=== PATIENT | male | born 1980 | race Caucasian/White ===

== ENCOUNTER 2018-12-31 01:02 | Observation (INO) ==
[2018-12-31 01:38] LABS: Microscopic, Urine URINE MICROSCOPIC (MICROSCOPIC)
[2018-12-31 01:39] LABS: Basophils % 0.2 % (0.1-2.0); Eosinophils % 0.3 % (0.1-12.0); Hematocrit 41.3 % (42.0-52.0); Hemoglobin 14.3 g/dL (14.1-18.0); Lymphocytes # 2.6 K/mm3 (0.7-4.5); Lymphocytes % 20.7 % (10-50); Mean Corpuscular HGB Conc 34.6 g/dL (31.8-35.4); Mean Corpuscular Hemoglobin 30.3 pg (27.0-31.2); Mean Corpuscular Volume 87.6 fl (80-94); Mean Platelet Volume 6.7 fl (7.4-10.4); Monocytes # 0.7 K/mm3 (0.1-1.0); Monocytes % 5.1 % (1.7-9.3); Neutrophils # 9.4 K/mm3 (1.8-7.8); Neutrophils % 73.6 % (37.0-80.0); Platelet Count 292 K/mm3 (142-424); Red Blood Count 4.72 M/mm3 (4.60-6.20); White Blood Count 12.8 K/mm3 (4.8-10.8)
[2018-12-31 01:42] LABS: Appearance,Urine CLEAR (Clear); Blood, Urine Negative (Negative); Color,Urine DK YELLOW (Yellow); Glucose,Urine (UA) Negative (Negative); Ketones,Urine Negative (Negative); Leukocyte Esterase,Urine Negative (Negative); Protein,Urine TRACE (Negative); Specific Gravity, Urine >= 1.030 (1.005-1.030)
[2018-12-31 01:50] LABS: Bilirubin,Urine Negative (Negative)
[2018-12-31 01:51] LABS: Bacteria,Urine Trace /lpf; WBC,Urine Occasional #/hpf (0-3)
[2018-12-31 01:51] LABS: Albumin Level 3.4 gm/dL (3.4-5.0); Albumin/Globulin Ratio 0.7 (1.1-1.8); Anion Gap 14.6 mEq/L (5-15); Bilirubin,Total 0.9 mg/dL (0.2-1.0); Calcium 8.7 mg/dL (8.5-10.1); Globulin 4.8 gm/dl (1.3-3.2); Potassium 3.6 mmoL/L (3.5-5.1); Total Protein,Serum 8.2 gm/dL (6.4-8.2)
[2018-12-31 02:00] LABS: Amphetamine/Metha Screen,Urine Negative ng/mL (<1000); Barbiturates Screen,Urine Negative ng/mL (<200); Benzodiazepines Screen,Urine Negative ng/mL (<200); Cannabinoid Screen,Urine Positive ng/mL (<50); Cocaine Screen,Urine Negative ng/mL (<300); Methadone Screen,Urine Negative ng/mL (<300); Opiate Screen,Urine Positive ng/mL (<300); Phencyclidine Screen,Urine Negative ng/mL (<25)
--- NOTE | 2018-12-31 02:36 | Emergency Department Note ---
ED Disposition Clinical Impression: Abscess of arm, left, Hepatitis C virus, Hepatitis C virus infection resolved after antiviral drug therapy Disposition: Admitted as Observation Condition on Discharge: Good Instructions: DI for Skin Abscess Referrals: Cameron Stewart MD [Primary Care Provider] - Time of Disposition: 02:42 - Critical Care Critical Care Time: No Attestation: On 12/31/18, the high probability of a clinically significant, sudden or life threatening deterioration of the following system(s) required my full and direct attention, intervention and personal management. The time I documented below is in addition to time spent performing reported procedures but includes the following listed in this critical care notation. Medical Decision Making - Medical Records Medical records reviewed: Yes: I reviewed the patient's medical records. - Phil Inquiry Pt receiving controlled substance: No Phil was queried for this patient: No Vital Signs: 12/31/18 01:03 Temperature 98.8 F Temperature Source Oral Pulse Rate [Left Radial] 98 H Respiratory Rate 18 Blood Pressure [Right Arm] 146/83 H Blood Pressure Mean [Right Arm] 104 Blood Pressure Source [Right Arm] Automatic Cuff Blood Pressure Position [Right Arm] Sitting 02 Sat by Pulse Oximetry 97 Oxygen Delivery Method Room Air - Lab Data Lab results reviewed: Yes: I reviewed the patient's lab results. Lab Results 12/31/18 01:25: WBC 12.8 H, RBC 4.72, Hgb 14.3, Hct 41.3 L, MCV 87.6, MCH 30.3, MCHC 34.6, RDW 14.0, Plt Count 292, MPV 6.7 L, Neut % (Auto) 73.6, Lymph % (Aut o) 20.7, [place] % (Auto) 5.1, Eos % (Auto) 0.3, Baso % (Auto) 0.2, Neut # (Auto) 9.4 H, Lymph # (Auto) 2.6, [place] # (Auto) 0.7, Eos # (Auto) 0.0, Baso # (Auto) 0.0 12/31/18 01:25: Lactate 0.8 12/31/18 01:25: Sodium 139, Potassium 3.6, Chloride 104, Carbon Dioxide 24, Anion Gap 14.6, BUN 9, Creatinine 1.05, Estimated Creat Clear 150, Estimated GFR 80, Est GFR ( Amer) 97, Glucose 129 H, Calcium 8.7, Total Bilirubin 0.9, AST 14 L, ALT 22, Alkaline Phosphatase 67, Total Protein 8.2, Albumin 3.4, Globulin 4.8 H, Albumin/Globulin Ratio 0.7 L 12/31/18 01:35: Urine Color Dk yellow, Urine Appearance Clear, Urine pH 6.0, Ur Specific [place] >= 1.030, Urine Protein Trace, Urine Glucose (UA) Negative, Urine Ketones Negative, Urine Blood Negative, Urine Nitrate Negative, Urine Bilirubin Negative, Urine Urobilinogen 1.0, Ur Leukocyte Esterase Negative, Urine WBC Occasional, Urine Bacteria Trace 12/31/18 01:35: Urine Opiates Screen Positive H, Urine Methadone Screen Negative, Ur Barbituates Screen Negative, Ur Phencyclidine Scrn Negative, Ur Amphetamines Screen Negative, U Benzodiazepines Scrn Negative, Urine Cocaine Screen Negative, U Marijuana (THC) Screen Positive H Result diagrams: 12/31/18 01:25 12/31/18 01:25 Orders (Tests/Meds): ED MEDICATIONS Generic Name Dose Route Start Last Admin Trade Name Freq PRN Reason Stop Dose Admin Miscellaneous 1 each 12/31/18 02:30 Vancomycin Consult Request * 01/30/19 02:29 CONSULT PHARMACY [facility] Nicotine 21 mg 12/31/18 09:00 Nicoderm 21mg/24hr Patch TD 01/30/19 08:59 DAILY [facility] Sodium Chloride 10 ml 12/31/18 01:30 Saline Flush 10ml Syringe IV 01/30/19 01:29 NEEDED PRN Maintain IV Site Discontinued Medications Generic Name Dose Route Start Last Admin Trade Name Freq PRN Reason Stop Dose Admin Ketorolac Tromethamine 30 mg 12/31/18 02:30 Toradol 30mg/Ml Vial IV 12/31/18 02:31 ONCE ONE ORDERS Category Date Time Status Blood Culture Stat Micro 12/31/18 01:25 Received Wound Culture and Gram Stain Stat Micro 12/31/18 02:25 Received - Physician Consults Physician Consulted: lan Time: 02:43 Reason -: Admission, Pt condition, Surgical Eval/Care Skin/Abscess/FB HPI - General Chief complaint: Skin/Abscess/Foreign Body Stated complaint: Spot on left arm Time Seen by Provider: 12/31/18 02:00 Mode of Arrival: Ambulatory Source of Information: Patient Limitations: No Limitations Description of Symptoms (Recalled from ER Triage Doc. by RN): pt c/o pain from spot on his left arm w/o drainage. stated he noticed it about 4 days ago and tried to "pop it with a needle" - Related Data Home Medications Medication Instructions Recorded Confirmed No Known Home Medications 12/31/18 12/31/18 Allergies Allergy/AdvReac Type Severity Reaction Status Date / Time No Known Allergies Allergy Verified 12/31/18 01:27 [facility] History - Hepatitis A Screen Drug use history?: No High risk sexual behaviors?: No History of sexually transmitted infection?: No Currently employed?: No Childcare worker?: No Do you have indoor plumbing?: Yes Do you have electricity?: Yes Attestation statement:: This patient has been screened for Hepatitis A risk factors. I have reviewed the patient's past medical history: Yes Medical History: Reports:: Hepatitis (Hep C) Other Surgeries: Yes: No Previous Surgery - Social History Smoking Status: Current every day smoker Tobacco Type: cigarettes # Packs/Day (cigarettes): 1 Alcohol Intake: never Occupational Status: employed - Psychiatric History Expresses thoughts of harming self/others: None Suicide Plan Description: No Plan Family Hx:: Diabetes ROS Obtained: Yes All systems reviewed & no additional complaints - Constitutional Constitutional: Denies fever(s) - Eyes Eyes: Denies change in vision - Cardiovascular Cardiovascular: Reports system reviewed and no additional complaints, except as docu, Denies chest pain, Denies dyspnea - Respiratory Respiratory: Yes system reviewed and no additional complaints, except as docu, No chest congestion, No cough, No dyspnea, No dyspnea on exertion, No wheezing - Gastrointestinal Gastrointestingal: Reports: system reviewed and no additional complaints, except as docu. Denies: abdominal pain, nausea, vomiting - Musculoskeletal Musculoskeletal: Denies muscle weakness, Reports muscle aches - Integumentary/Breasts Skin/Breast: Reports other (large abscess left antecubitus with erythema and surrounding induration/merlene) - Neurologic Neurologic: Reports system reviewed and no additional complaints, except as docu, Denies abnormal speech, Denies behavioral changes, Denies headache(s), Denies syncope, Denies weakness Physical Exam - General General appearance: alert, in no apparent distress, other (covered head to toe with black fence paint) - Eye Eye exam: Present: normal appearance, PERRL, EOMI - ENT ENT exam: Present: normal exam - Respiratory Respiratory exam: Present: normal lung sounds bilaterally. Absent: respiratory distress - Cardiovascular Cardiovascular exam: Present: regular rate, normal rhythm. Absent: JVD - Extremities Exam Extremities exam: Present: tenderness. Absent: normal inspection, full ROM - Expanded Upper Extremity Exam Left Elbow exam: Present: tenderness, swelling, erythema. Absent: normal inspection, full ROM - Neurological Exam Neurological exam: Present: alert, oriented X3 - Psychiatric Psychiatric exam: Present: normal affect, normal mood - Skin Skin exam: Present: warm, dry, intact, erythema, other (induration). Absent: normal color Procedures - Abscess I/D Site: upper extremity Side (if applicable): left Local Anesthetic: lidocaine 2% Amount of anesthesia used (mL): 8 Technique: incised with #11 blade Amount of fluid expressed (mL): 10 Packing used?: iodoform
[2018-12-31 05:48] LABS: Basophils % 0.2 % (0.1-2.0); Eosinophils # 0.1 K/mm3 (0.0-0.4); Eosinophils % 0.4 % (0.1-12.0); Hemoglobin 14.5 g/dL (14.1-18.0); Lymphocytes # 1.7 K/mm3 (0.7-4.5); Lymphocytes % 11.4 % (10-50); Mean Corpuscular HGB Conc 34.5 g/dL (31.8-35.4); Mean Corpuscular Hemoglobin 30.7 pg (27.0-31.2); Mean Corpuscular Volume 89.1 fl (80-94); Mean Platelet Volume 6.9 fl (7.4-10.4); Monocytes # 0.3 K/mm3 (0.1-1.0); Monocytes % 2.3 % (1.7-9.3); Neutrophils # 12.4 K/mm3 (1.8-7.8); Neutrophils % 85.8 % (37.0-80.0); Platelet Count 239 K/mm3 (142-424); Red Blood Count 4.71 M/mm3 (4.60-6.20); Red Cell Distribution Width 14.2 % (11.5-17.5); White Blood Count 14.5 K/mm3 (4.8-10.8)
[2018-12-31 06:10] LABS: Anion Gap 12.9 mEq/L (5-15); Calcium 8.7 mg/dL (8.5-10.1); Potassium 3.9 mmoL/L (3.5-5.1)
--- NOTE | 2018-12-31 07:11 | Consult Report ---
*Admission Date: 12/31/18 *Chief complaint: Left upper extremity abscess *History of present illness: This is a 38-year-old gentleman who presented to the emergency department with worsening pain and swelling along the left antecubital fossa. An obvious abscess was incised and drained in the emergency department. He was admitted for IV antibiotics and surgical consultation. Concerns for incomplete incision and drainage were discussed with the patient in the emergency department. Review of Systems - Constitutional Denies chills - Eyes Denies change in vision - *Cardiovascular Denies chest pain - *Respiratory Denies cough - *Gastrointestinal Denies abdominal pain - *Neurologic Denies abnormal speech, Denies behavioral changes, Denies headache(s), Denies fainting, Denies weakness [facility] History Medical History: Reports:: Hepatitis (Hep C), Hyperlipidemia, Hypertension Denies:: Diabetes Mellitus Type 1, Diabetes Mellitus Type 2 *Have you ever received a pneumonia vaccine?: No (unsure) *Have you received a flu vaccine this season?: Yes Other Surgeries: Yes: No Previous Surgery - *Social History Educational Level: Attended College Smoking Status: Current every day smoker Tobacco Type: cigarettes # Packs/Day (cigarettes): 1 Alcohol Intake: current Alcohol Intake Frequency:: holidays/special occasions only Substance Use Type: crack/cocaine *Occupational Status:: employed Housing: apartment Household Members: spouse *Travel in the last 8 weeks: Outside the [facility] - Psychiatric History Expresses thoughts of harming self/others: None Suicide Plan Description: No Plan Family Hx:: Diabetes Meds Home Medications Medication Instructions Recorded Confirmed Type Lisinopril [Lisinopril 10mg Tab] 10 mg PO DAILY 12/31/18 12/31/18 History Allergies Allergy/AdvReac Type Severity Reaction Status Date / Time No Known Allergies Allergy Verified 12/31/18 01:27 Exam Vital signs and Labs for Last 24 Hours: Temp Pulse Resp BP Pulse Ox 98.5 F 86 20 140/74 94 L 12/31/18 03:25 12/31/18 03:25 12/31/18 03:25 12/31/18 03:25 12/31/18 03:25 Laboratory Results - last 24 hr 12/31/18 01:25: WBC 12.8 H, RBC 4.72, Hgb 14.3, Hct 41.3 L, MCV 87.6, MCH 30.3, MCHC 34.6, RDW 14.0, Plt Count 292, MPV 6.7 L, Neut % (Auto) 73.6, Lymph % (Auto) 20.7, [place] % (Auto) 5.1, Eos % (Auto) 0.3, Baso % (Auto) 0.2, Neut # (Auto) 9.4 H, Lymph # (Auto) 2.6, [place] # (Auto) 0.7, Eos # (Auto) 0.0, Baso # (Auto) 0.0 12/31/18 01:25: Lactate 0.8 12/31/18 01:25: Sodium 139, Potassium 3.6, Chloride 104, Carbon Dioxide 24, Anion Gap 14.6, BUN 9, Creatinine 1.05, Estimated Creat Clear 150, Estimated GFR 80, Est GFR ( Amer) 97, Glucose 129 H, Calcium 8.7, Total Bilirubin 0.9, AST 14 L, ALT 22, Alkaline Phosphatase 67, Total Protein 8.2, Albumin 3.4, Globulin 4.8 H, Albumin/Globulin Ratio 0.7 L 12/31/18 01:35: Urine Color Dk yellow, Urine Appearance Clear, Urine pH 6.0, Ur Specific [place] >= 1.030, Urine Protein Trace, Urine Glucose (UA) Negative, Urine Ketones Negative, Urine Blood Negative, Urine Nitrate Negative, Urine Bilirubin Negative, Urine Urobilinogen 1.0, Ur Leukocyte Esterase Negative, Urine WBC Occasional, Urine Bacteria Trace 12/31/18 01:35: Urine Opiates Screen Positive H, Urine Methadone Screen Negative, Ur Barbituates Screen Negative, Ur Phencyclidine Scrn Negative, Ur Amp hetamines Screen Negative, U Benzodiazepines Scrn Negative, Urine Cocaine Screen Negative, U Marijuana (THC) Screen Positive H 12/31/18 05:30: WBC 14.5 H, RBC 4.71, Hgb 14.5, Hct 42.0, MCV 89.1, MCH 30.7, MCHC 34.5, RDW 14.2, Plt Count 239, MPV 6.9 L, Neut % (Auto) 85.8 H, Lymph % (Auto) 11.4, [place] % (Auto) 2.3, Eos % (Auto) 0.4, Baso % (Auto) 0.2, Neut # (Auto) 12.4 H, Lymph # (Auto) 1.7, [place] # (Auto) 0.3, Eos # (Auto) 0.1, Baso # (Auto) 0.0 12/31/18 05:30: Sodium 140, Potassium 3.9, Chloride 104, Carbon Dioxide 27, Anion Gap 12.9, BUN 10, Creatinine 1.22, Estimated Creat Clear 121, Estimated GFR 67, Est GFR ( Amer) 81, Glucose 93 D, Calcium 8.7 I & O for Last 24 hours: Intake & Output 12/28/18 12/29/18 12/30/18 12/31/18 11:59 11:59 11:59 11:59 Intake Total 375 / 375 Balance 375 / 375 Weight 226 lb 1 oz Microbiology Reports for the Last 24 Hours: Microbiology 12/31/18 02:25 Arm,Left Gram Stain - Final - Constitutional no acute distress - *Routine Respiratory Exam Absent: respiratory distress - *Routine Cardiovascular Exam Present: RRR - *Routine Skin Exam Comments: Left antecubital fossa with significant induration and surrounding blush. No "streaking cellulitis". Wound base with persistent purulent drainage. Results - Labs 12/31/18 05:30 12/31/18 05:30 Laboratory Results - last 24 hr 12/31/18 01:25: WBC 12.8 H, RBC 4.72, Hgb 14.3, Hct 41.3 L, MCV 87.6, MCH 30.3, MCHC 34.6, RDW 14.0, Plt Count 292, MPV 6.7 L, Neut % (Auto) 73.6, Lymph % (Auto) 20.7, [place] % (Auto) 5.1, Eos % (Auto) 0.3, Baso % (Auto) 0.2, Neut # (Auto) 9.4 H, Lymph # (Auto) 2.6, [place] # (Auto) 0.7, Eos # (Auto) 0.0, Baso # (Auto) 0.0 12/31/18 01:25: Lactate 0.8 12/31/18 01:25: Sodium 139, Potassium 3.6, Chloride 104, Carbon Dioxide 24, Anion Gap 14.6, BUN 9, Creatinine 1.05, Estimated Creat Clear 150, Estimated GFR 80, Est GFR ( Amer) 97, Glucose 129 H, Calcium 8.7, Total Bilirubin 0.9, AST 14 L, ALT 22, Alkaline Phosphatase 67, Total Protein 8.2, Albumin 3.4, Globulin 4.8 H, Albumin/Globulin Ratio 0.7 L 12/31/18 01:35: Urine Color Dk yellow, Urine Appearance Clear, Urine pH 6.0, Ur Specific [place] >= 1.030, Urine Protein Trace, Urine Glucose (UA) Negative, Urine Ketones Negative, Urine Blood Negative, Urine Nitrate Negative, Urine Bilirubin Negative, Urine Urobilinogen 1.0, Ur Leukocyte Esterase Negative, Urin e WBC Occasional, Urine Bacteria Trace 12/31/18 01:35: Urine Opiates Screen Positive H, Urine Methadone Screen Negative, Ur Barbituates Screen Negative, Ur Phencyclidine Scrn Negative, Ur Amphetamines Screen Negative, U Benzodiazepines Scrn Negative, Urine Cocaine Screen Negative, U Marijuana (THC) Screen Positive H 12/31/18 05:30: WBC 14.5 H, RBC 4.71, Hgb 14.5, Hct 42.0, MCV 89.1, MCH 30.7, MCHC 34.5, RDW 14.2, Plt Count 239, MPV 6.9 L, Neut % (Auto) 85.8 H, Lymph % (Auto) 11.4, [place] % (Auto) 2.3, Eos % (Auto) 0.4, Baso % (Auto) 0.2, Neut # (Auto) 12.4 H, Lymph # (Auto) 1.7, [place] # (Auto) 0.3, Eos # (Auto) 0.1, Baso # (Auto) 0.0 12/31/18 05:30: Sodium 140, Potassium 3.9, Chloride 104, Carbon Dioxide 27, Anion Gap 12.9, BUN 10, Creatinine 1.22, Estimated Creat Clear 121, Estimated GFR 67, Est GFR ( Amer) 81, Glucose 93 D, Calcium 8.7 Assessment and Plan (1) Abscess of arm, left Current visit: Yes Status: Acute Category: Medical Code(s): L02.414 - Cutaneous abscess of left upper limb Partial incision and drainage in the emergency department with persistent purul ent debris and significant induration. Continue IV antibiotics. He is being scheduled for incision and drainage in the emergency department to be completed later today.
--- NOTE | 2018-12-31 07:34 | History & Physical Report ---
*Admission Date: 12/31/18 *Chief complaint: Pain in left arm *History of present illness: 38-year-old male presented to the emergency department with a 6-day history of a swollen lesion in the left arm that would drain pus when punctured. He reports the lesion was quite small and it began 6 days ago and he repeatedly open the wound at home to try and drain it. He would usually get some fluid from the lesion and then it would close up. Within 24-48 hours the lesion would swell again and even be larger. By December 28 the lesion had gotten quite large. He once again ruptured the lesion. Lesion follow the same course and by Friday (December 30) patient was having sweats and chills but is unsure if he was having fevers. The lesion had grown quite large in the anterior left elbow. He ultimately sought treatment at the emergency department. In the emergency department he had a fluctuant mass in the left antecubital area. This was I indeed in the ER with return of significant amount of pus. However the lesion remained quite large and decision was made to admit the patient for IV antibiotics and surgical consultation. Past medical history is significant for hepatitis C which the patient believes he contracted through dirty needles used when he received a tattoo. He previously used cocaine and now will smoke marijuana occasionally. He has a history of hypertension but has been monitoring his blood pressure at home and is not taking his medication [facility] History I have reviewed the patient's past medical history: Yes Medical History: Reports:: Hepatitis (Hep C), Hyperlipidemia, Hypertension Denies:: Diabetes Mellitus Type 1, Diabetes Mellitus Type 2 *Have you ever received a pneumonia vaccine?: No (unsure) *Have you received a flu vaccine this season?: Yes Other Surgeries: Yes: No Previous Surgery - *Social History Educational Level: Attended College Smoking Status: Current every day smoker Tobacco Type: cigarettes # Packs/Day (cigarettes): 1 Alcohol Intake: current Alcohol Intake Frequency:: holidays/special occasions only Substance Use Type: crack/cocaine *Occupational Status:: employed Housing: apartment Household Members: spouse *Travel in the last 8 weeks: Outside the [facility] - Psychiatric History Expresses thoughts of harming self/others: None Suicide Plan Description: No Plan Family Hx:: Diabetes Review of Systems - Review of Systems Review of systems:: pertinent systems reviewed and negative unless documented below - Constitutional Reports chills, Denies body ache(s) - *Cardiovascular Denies chest pain - *Respiratory Denies chest congestion, Denies cough - *Gastrointestinal Denies abdominal pain - *Neurologic Denies abnormal speech, Denies behavioral changes, Denies headache(s), Denies fainting, Denies weakness Meds Home Medications Medication Instructions Recorded Confirmed Type Lisinopril [Lisinopril 10mg Tab] 10 mg PO DAILY 12/31/18 12/31/18 History Allergies Allergy/AdvReac Type Severity Reaction Status Date / Time No Known Allergies Allergy Verified 12/31/18 01:27 Exam Vital signs and Labs for Last 24 Hours: Temp Pulse Resp BP Pulse Ox 98.5 F 86 20 140/74 94 L 12/31/18 03:25 12/31/18 03:25 12/31/18 03:25 12/31/18 03:25 12/31/18 03:25 Laboratory Results - last 24 hr 12/31/18 01:25: WBC 12.8 H, RBC 4.72, Hgb 14.3, Hct 41.3 L, MCV 87.6, MCH 30.3, MCHC 34.6, RDW 14.0, Plt Count 292, MPV 6.7 L, Neut % (Auto) 73.6, Lymph % (Auto) 20.7, [place] % (Auto) 5.1, Eos % (Auto) 0.3, Baso % (Auto) 0.2, Neut # (Auto) 9.4 H, Lymph # (Auto) 2.6, [place] # (Auto) 0.7, Eos # (Auto) 0.0, Baso # (Auto) 0.0 12/31/18 01:25: Lactate 0.8 12/31/18 01:25: Sodium 139, Potassium 3.6, Chloride 104, Carbon Dioxide 24, Anion Gap 14.6, BUN 9, Creatinine 1.05, Estimated Creat Clear 150, Estimated GFR 80, Est GFR ( Amer) 97, Glucose 129 H, Calcium 8.7, Total Bilirubin 0.9, AST 14 L, ALT 22, Alkaline Phosphatase 67, Total Protein 8.2, Albumin 3.4, Globulin 4.8 H, Albumin/Globulin Ratio 0.7 L 12/31/18 01:35: Urine Color Dk yellow, Urine Appearance Clear, Urine pH 6.0, Ur Specific [place] >= 1.030, Urine Protein Trace, Urine Glucose (UA) Negative, Urine Ketones Negative, Urine Blood Negative, Urine Nitrate Negative, Urine Bilirubin Negative, Urine Urobilinogen 1.0, Ur Leukocyte Esterase Negative, Urine WBC Occasional, Urine Bacteria Trace 12/31/18 01:35: Urine Opiates Screen Positive H, Urine Methadone Screen Negative, Ur Barbituates Screen Negative, Ur Phencyclidine Scrn Negative, Ur Amphetamines Screen Negative, U Benzodiazepines Scrn Negative, Urine Cocaine Screen Negative, U Marijuana (THC) Screen Positive H 12/31/18 05:30: WBC 14.5 H, RBC 4.71, Hgb 14.5, Hct 42.0, MCV 89.1, MCH 30.7, MCHC 34.5, RDW 14.2, Plt Count 239, MPV 6.9 L, Neut % (Auto) 85.8 H, Lymph % (Auto) 11.4, [place] % (Auto) 2.3, Eos % (Auto) 0.4, Baso % (Auto) 0.2, Neut # (Auto) 12.4 H, Lymph # (Auto) 1.7, [place] # (Auto) 0.3, Eos # (Auto) 0.1, Baso # (Auto) 0.0 12/31/18 05:30: Sodium 140, Potassium 3.9, Chloride 104, Carbon Dioxide 27, Anion Gap 12.9, BUN 10, Creatinine 1.22, Estimated Creat Clear 121, Estimated GFR 67, Est GFR ( Amer) 81, Glucose 93 D, Calcium 8.7 I & O for Last 24 hours: Intake & Output 12/28/18 12/29/18 12/30/18 12/31/18 11:59 11:59 11:59 11:59 Intake Total 375 / 375 Balance 375 / 375 Weight 226 lb 1 oz Microbiology Reports for the Last 24 Hours: Microbiology 12/31/18 02:25 Arm,Left Gram Stain - Final Narrative: Patient is awake and alert in no distress. He actually looks to be in a mild amount of pain. HEENT exam is grossly normal and only noted that patient's face is covered in paint. Rest of the skin exam also shows hands are stained with black paint. Oropharynx is moist and clear. Neck is without lymphadenopathy. Lungs are clear. Heart has a regular rate and rhythm. Abdomen is soft. Extremity exam reveals a bandage left antecubital space. I did not remove the bandage as the lesion had just been dressed and Dr. Terry had already seen the wound. Assessment and Plan (1) Abscess of arm, left Current visit: Yes Status: Acute Category: Medical Code(s): L02.414 - Cutaneous abscess of left upper limb - Assessment and plan all Dx Assessment and Plan for all problems:: Patient will be taken to the operating room this afternoon for I&D of his abscess and continue antibiotics
--- NOTE | 2018-12-31 08:08 | Pharmacy Consult Notes ---
- Pharmacy Consult Date: 12/31/18 Time: 08:07 Referring provider: DR. LANCE Reason for Consult:: VANCOMYCIN DOSING Allergies and ADEs:: Allergies Allergy/AdvReac Type Severity Reaction Status Date / Time No Known Allergies Allergy Verified 12/31/18 01:27 Home Medications:: Home Medications Medication Instructions Recorded Confirmed Type Lisinopril [Lisinopril 10mg Tab] 10 mg PO DAILY 12/31/18 12/31/18 History Height: 1.91 m Weight: 102.54 kg Laboratory Results:: Laboratory Results - last 24 hr 12/31/18 01:25: WBC 12.8 H, RBC 4.72, Hgb 14.3, Hct 41.3 L, MCV 87.6, MCH 30.3, MCHC 34.6, RDW 14.0, Plt Count 292, MPV 6.7 L, Neut % (Auto) 73.6, Lymph % (Auto) 20.7, [place] % (Auto) 5.1, Eos % (Auto) 0.3, Baso % (Auto) 0.2, Neut # (Auto) 9.4 H, Lymph # (Auto) 2.6, [place] # (Auto) 0.7, Eos # (Auto) 0.0, Baso # (Auto) 0.0 12/31/18 01:25: Lactate 0.8 12/31/18 01:25: Sodium 139, Potassium 3.6, Chloride 104, Carbon Dioxide 24, Anion Gap 14.6, BUN 9, Creatinine 1.05, Estimated Creat Clear 150, Estimated GFR 80, Est GFR ( Amer) 97, Glucose 129 H, Calcium 8.7, Total Bilirubin 0.9, AST 14 L, ALT 22, Alkaline Phosphatase 67, Total Protein 8.2, Albumin 3.4, Globulin 4.8 H, Albumin/Globulin Ratio 0.7 L 12/31/18 01:35: Urine Color Dk yellow, Urine Appearance Clear, Urine pH 6.0, Ur Specific [place] >= 1.030, Urine Protein Trace, Urine Glucose (UA) Negative, Urine Ketones Negative, Urine Blood Negative, Urine Nitrate Negative, Urine Bilirubin Negative, Urine Urobilinogen 1.0, Ur Leukocyte Esterase Negative, Urine WBC Occasional, Urine Bacteria Trace 12/31/18 01:35: Urine Opiates Screen Positive H, Urine Methadone Screen Negative, Ur Barbituates Screen Negative, Ur Phencyclidine Scrn Negative, Ur Amphetamines Screen Negative, U Benzodiazepines Scrn Negative, Urine Cocaine Screen Negative, U Marijuana (THC) Screen Positive H 12/31/18 05:30: WBC 14.5 H, RBC 4.71, Hgb 14.5, Hct 42.0, MCV 89.1, MCH 30.7, MCHC 34.5, RDW 14.2, Plt Count 239, MPV 6.9 L, Neut % (Auto) 85.8 H, Lymph % (Auto) 11.4, [place] % (Auto) 2.3, Eos % (Auto) 0.4, Baso % (Auto) 0.2, Neut # (Auto) 12.4 H, Lymph # (Auto) 1.7, [place] # (Auto) 0.3, Eos # (Auto) 0.1, Baso # (Auto) 0.0 12/31/18 05:30: Sodium 140, Potassium 3.9, Chloride 104, Carbon Dioxide 27, Anion Gap 12.9, BUN 10, Creatinine 1.22, Estimated Creat Clear 121, Estimated GFR 67, Est GFR ( Amer) 81, Glucose 93 D, Calcium 8.7 Medical History: Reports:: Hepatitis (Hep C), Hyperlipidemia, Hypertension Denies:: Diabetes Mellitus Type 1, Diabetes Mellitus Type 2 Assessment and Plan (1) Abscess of arm, left Current visit: Yes Status: Acute Category: Medical Code(s): L02.414 - Cutaneous abscess of left upper limb - Assessment and plan all Dx Assessment and Plan for all problems:: BASED ON PATIENT FACTORS, RECOMMEND VANCOMYCIN 2250 MG IV ONCE, FOLLOWED BY VANCOMYCIN 2 GM IV Q12H. WILL OBTAIN VANCOMYCIN TROUGH LEVEL PRIOR TO 4TH DOSE. PHARMACY WILL FOLLOW DAILY AND ADJUST APPROPRIATE.
[2018-12-31 10:21] LABS: Lymphocytes % 17 % (10-50); Monocytes % 1 % (2-9); Neutrophils % 81 % (42-76); RBC Morphology Normal; Total Cells Counted 100
--- NOTE | 2018-12-31 12:57 | Progress Note ---
[facility] Anesthesia Checklist - Patient Identification Patient Identification: Arm Band, Verbal (Name & ) - Structural Data Admitted From: Inpatient Planned Operative Procedure/s: i and d abcess Consent for Planned Operative Procedure(s) Verified: Yes Verified Documents: History and Physical - NPO Status Verified Time NPO: 00:00 - Additional verifications Patient : No Anesthesia Reactions: No Hx Blood Transfusions: No Blood Transfusion Reaction: No Cephalosporin Allergy: No Previous Colonoscopy: No - Cardiovascular Assessment Heart Sounds: S1 & S2 Pulse Strength: Baseline Pulse Rhythm: Regular Peripheral Edema: Yes - Neurological Assessment Level of Consciousness: Awake, Alert, Appropriate Hx Seizures: No Numbness or tingling in extremities: No - Anesthesia Plan Anesthesia Risk discussed: Yes Anesthesia Plan: Verified ASA Class: II Anesthesia Type: General [facility] History I have reviewed the patient's past medical history: Yes Medical History: Reports:: Hepatitis (Hep C), Hyperlipidemia, Hypertension Denies:: Diabetes Mellitus Type 1, Diabetes Mellitus Type 2 *Have you ever received a pneumonia vaccine?: No (unsure) *Have you received a flu vaccine this season?: Yes Other Surgeries: Yes: No Previous Surgery - *Social History Educational Level: Attended College Smoking Status: Current every day smoker Tobacco Type: cigarettes # Packs/Day (cigarettes): 1 Alcohol Intake: current Alcohol Intake Frequency:: holidays/special occasions only Substance Use Type: crack/cocaine *Occupational Status:: employed Housing: apartment Household Members: spouse *[facility] in the [facility] - Psychiatric History Expresses thoughts of harming self/others: None Suicide Plan Description: No Plan Family Hx:: Diabetes
--- NOTE | 2018-12-31 14:01 | Operative Note ---
Date of procedure: 12/31/18 Pre-op Diagnosis:: Left antecubital fossa abscess with surrounding cellulitis Post-op Diagnosis:: Same Procedure performed:: Incision and drainage of left antecubital fossa abscess Surgeon:: Beto Hill MD [employer] COORDINATOR:: Cecilio Grimm Anesthesia: LMA Estimated blood loss (mL): 10 Operative findings:: Multiple small pockets of purulence at the site of prior incision and drainage and proximal to the site (within deep subcutaneous tissue) Operative note:: After informed consent was obtained the patient was taken to the operating room and placed in the supine position. General anesthesia with laryngeal mask airway was achieved. The patient's left arm was prepped and draped in a sterile fashion. The area of prior incision and drainage from evaluation in the emergency department was carefully inspected. Utilizing the initial skin opening the more proximal area of induration was opened and evacuated within the subcutaneous tissue. Multiple small pockets of purulence were encountered and carefully evacuated. Fluid was obtained for Gram stain/culture. The cavity was packed with moistened Kerlix that was infiltrated with 1% lidocaine. Dressings were applied and the patient was transferred to recovery in stable condition. Condition: stable Disposition: PACU Specimens:: Fluid for Gram stain/culture Complications:: No immediate
--- NOTE | 2018-12-31 14:08 | Progress Note ---
[facility] Anesthesia Record Part I Intake, IV Amount: 250 Estimated blood loss (mL): 0 Urine output (mL): 0 Blood Products used (#): none Blood Pressure: 130/58 SaO2: 96 Pulse Rate: 67 Respiratory Rate: 18 Temperature: 98.2 F Patient is:: Drowsy, Stable Stable to PACU at:: 14:03
--- NOTE | 2018-12-31 14:09 | Progress Note ---
[facility] Anesthesia Record Part II Discharge Time: 14:33 Destination: Medical Surgical Department PACU nurse assessment reviewed?: Yes Patient Condition:: Good Anesthesia Complications:: None Swallowing reflex intact?: Yes Cyanosis?: No
--- NOTE | 2019-01-01 07:27 | Progress Note ---
Subjective Patient reports: feels better (Patient currently in restroom. He states that he is "doing better" and wishes to go home.) Exam Vital signs and Labs for Last 24 Hours: Temp Pulse Resp BP Pulse Ox 98.5 F 81 20 134/64 96 01/01/19 04:00 01/01/19 04:00 01/01/19 04:00 01/01/19 04:00 01/01/19 04:00 Laboratory Results - last 24 hr 12/31/18 05:30: Total Counted 100, Neutrophils % (Manual) 81 H, Band Neutrophils % 1.0, Lymphocytes % (Manual) 17, Monocytes % (Manual) 1 L, Platelet Estimate Normal, RBC Morphology Normal I & O for Last 24 hours: Intake & Output 12/29/18 12/30/18 12/31/18 01/01/19 11:59 11:59 11:59 11:59 Intake Total 375 / 375 4071 / 4071 Output Total 0 / 0 Balance 375 / 375 4071 / 4071 Weight 226 lb 1 oz Microbiology Reports for the Last 24 Hours: Microbiology 12/31/18 02:25 Arm,Left Gram Stain - Final 12/31/18 02:25 Arm,Left Wound Culture - Preliminary NO GROWTH AFTER 24 HOURS - Constitutional no acute distress Progress Note: A&P (1) Abscess of arm, left Status: Acute Assessment and plan: Overall, doing well status post incision and drainage. Dressing changes to begin today. Outpatient dressing changes. Likely discharge home after first dressing change with ongoing outpatient follow-up. Current Visit: Yes
--- NOTE | 2019-01-01 07:34 | Progress Note ---
Internal Medicine - PN: Subj *Date: 01/01/19 *Time: 07:32 Interval history: Patient reports improvement in pain. He underwent successful I&D of his left arm wound yesterday by Dr. Terry Exam Vital signs and Labs for Last 24 Hours: Temp Pulse Resp BP Pulse Ox 98.5 F 81 20 134/64 96 01/01/19 04:00 01/01/19 04:00 01/01/19 04:00 01/01/19 04:00 01/01/19 04:00 Laboratory Results - last 24 hr 12/31/18 05:30: Total Counted 100, Neutrophils % (Manual) 81 H, Band Neutrophils % 1.0, Lymphocytes % (Manual) 17, Monocytes % (Manual) 1 L, Platelet Estimate No rmal, RBC Morphology Normal I & O for Last 24 hours: Intake & Output 12/29/18 12/30/18 12/31/18 01/01/19 11:59 11:59 11:59 11:59 Intake Total 375 / 375 4071 / 4071 Output Total 0 / 0 Balance 375 / 375 4071 / 4071 Weight 226 lb 1 oz Microbiology Reports for the Last 24 Hours: Microbiology 12/31/18 02:25 Arm,Left Gram Stain - Final 12/31/18 02:25 Arm,Left Wound Culture - Preliminary NO GROWTH AFTER 24 HOURS Narrative: The wound is dressed and I did not expose it as dressing change was upcoming. Patient had no tenderness along the distal bicep or the proximal forearm. He was able to flex and extend the elbow. When I entered the room patient was actually sleeping on the affected side. Assessment and Plan (1) Abscess of arm, left Current visit: Yes Status: Acute Category: Medical Code(s): L02.414 - Cutaneous abscess of left upper limb - Assessment and plan all Dx Assessment and Plan for all problems:: Await surgical evaluation of the wound. I have talked with Dr. Terry. If dressing changes go well patient can be discharged later today. Dr. Terry is willing to write a limited prescription of narcotics.
--- NOTE | 2019-01-01 07:35 | Discharge Summary ---
General - General Admission date:: 12/31/18 Discharge date: 01/01/19 HPI HPI: 38-year-old male presented to the emergency department with a 6-day history of a swollen lesion in the left arm that would drain pus when punctured. He reports the lesion was quite small and it began 6 days ago and he repeatedly open the wound at home to try and drain it. He would usually get some fluid from the lesion and then it would close up. Within 24-48 hours the lesion would swell again and even be larger. By December 28 the lesion had gotten quite large. He once again ruptured the lesion. Lesion follow the same course and by Friday (December 30) patient was having sweats and chills but is unsure if he was having fevers. The lesion had grown quite large in the anterior left elbow. He ultimately sought treatment at the emergency department. In the emergency department he had a fluctuant mass in the left antecubital area. This was I indeed in the ER with return of significant amount of pus. However the lesion remained quite large and decision was made to admit the patient for IV antibiotics and surgical consultation. Past medical history is significant for hepatitis C which the patient believes he contracted through dirty needles used when he received a tattoo. He previously used cocaine and now will smoke marijuana occasionally. He has a history of hypertension but has been monitoring his blood pressure at home and is not taking his medication Hospital Course Hospital Course: On December 31 patient was taken to the OR where he underwent successful I&D of the left arm abscess with associated cellulitis. Patient was continued on antibiotics. On January 01 he was discharged home. Pain medication will be prescribed by Dr. Terry. Patient will follow up with Dr. Terry and Dr. Steawrt. Objective Vital signs: Temp Pulse Resp BP Pulse Ox 98.5 F 81 20 134/64 96 01/01/19 04:00 01/01/19 04:00 01/01/19 04:00 01/01/19 04:00 01/01/19 04:00 Results Labs on day of discharge: Labs from last 24 hours 12/31/18 05:30 Total Counted 100 Neutrophils % (Manual) 81 H Band Neutrophils % 1.0 Lymphocytes % (Manual) 17 Monocytes % (Manual) 1 L Platelet Estimate Normal RBC Morphology Normal Preliminary micro results at discharge 12/31/18 02:25 Wound Culture - Preliminary Arm,Left NO GROWTH AFTER 24 HOURS DS: Diagnosis - Discharge Diagnosis (1) Abscess of arm, left Status: Acute Discharge Plan - Patient Discharge Instructions ACTIVITY: Continue current activity DIET: continue same diet Patient Instructions: DI for Skin Abscess - Follow up Plan Follow up with: Cameron Stewart MD [Primary Care Provider] - Beto Hill MD [Staff Physician] - 1 week Disposition: Home, Self-Intermediate Medications: Home Medications Medication Instructions Recorded Confirmed Type RX: Lisinopril [Lisinopril 10mg 10 mg PO DAILY 12/31/18 12/31/18 History Tab] Sulfamethoxazole/Trimethoprim 1 each PO BID #14 tablet 01/01/19 Rx [Bactrim DS tablet] Prescriptions/Medication Reconciliation: New Sulfamethoxazole/Trimethoprim [Bactrim DS tablet] 1 each PO BID #14 tablet Continue RX: Lisinopril [Lisinopril 10mg Tab] 10 mg PO DAILY
== END 2019-01-01 10:14 | disposition home or self-care (01) ==
LOC: ER 01:02 → 2ND 01:02 → OBSVTOIN 03:13 → INTOOBSV 03:13 → 2ND 03:14
PROVIDERS: ADMIT Family Medicine; ATTEND Emergency Medicine
CPT/HCPCS: 36415; 80048; 80053; 80305; 81001; 83605; 85007; 85025; 87040; 87070; 87075; 87077; 87186; 87205; 96365; 96375; 99284; G0378; J0131; J2543; J3370

== ENCOUNTER → 2019-01-04 15:08 | Outpatient (CLI) | payer OTHER, SELFPAY ==
[2019-01-04 16:56] LABS: Amphetamine/Metha Screen,Urine Negative ng/mL (<1000); Barbiturates Screen,Urine Negative ng/mL (<200); Benzodiazepines Screen,Urine Negative ng/mL (<200); Cannabinoid Screen,Urine Positive ng/mL (<50); Cocaine Screen,Urine Negative ng/mL (<300); Methadone Screen,Urine Negative ng/mL (<300); Opiate Screen,Urine Positive ng/mL (<300); Phencyclidine Screen,Urine Negative ng/mL (<25)
[2019-01-12 08:29] LABS: Codeine Positive (.); Hydrocodone Positive (.); Hydromorphone Positive (.); Morphine Positive (.)
[2019-01-13 06:55] LABS: Codeine Confirm 605 ng/mL (Cutoff=100); Hydrocodone Confirm 1815 ng/mL (Cutoff=100); Hydromorphone Confirm 635 ng/mL (Cutoff=100); Morphine Confirm >3000 ng/mL (Cutoff=100); Opiates Positive (.)
== END ==
PROVIDERS: Visit Provider Nurse Practitioner Family
DX: M79.603 Pain in arm, unspecified (principal); Z79.899 Other long term (current) drug therapy; L02.414 Cutaneous abscess of left upper limb
CPT/HCPCS: 80305; 80361; G0480

== ENCOUNTER → 2019-04-28 08:02 | Outpatient (CLI) | payer OTHER, SELFPAY ==
[2019-04-28 08:29] LABS: Basophils % 0.5 % (0.1-2.0); Eosinophils % 0.5 % (0.1-12.0); Hematocrit 36.4 % (42.0-52.0); Hemoglobin 11.9 g/dL (14.1-18.0); Lymphocytes # 1.5 K/mm3 (0.7-4.5); Lymphocytes % 15.8 % (10-50); Mean Corpuscular HGB Conc 32.8 g/dL (31.8-35.4); Mean Corpuscular Hemoglobin 26.8 pg (27.0-31.2); Mean Corpuscular Volume 81.9 fl (80-94); Mean Platelet Volume 6.5 fl (7.4-10.4); Monocytes # 0.5 K/mm3 (0.1-1.0); Neutrophils # 7.2 K/mm3 (1.8-7.8); Neutrophils % 78.3 % (37.0-80.0); Platelet Count 250 K/mm3 (142-424); Red Blood Count 4.45 M/mm3 (4.60-6.20); Red Cell Distribution Width 13.3 % (11.5-17.5); White Blood Count 9.2 K/mm3 (4.8-10.8)
[2019-04-28 08:57] LABS: INR 1.16 (0.9-1.1)
[2019-04-28 12:12] LABS: Erythrocyte Sedimentation Rate 80 mm/hr (0-15)
[2019-04-28 12:19] LABS: Alanine Aminotransferase 13 U/L (12-78); Albumin Level 2.4 gm/dL (3.4-5.0); Albumin/Globulin Ratio 0.5 (1.1-1.8); Alkaline Phosphatase 68 U/L (46-116); Anion Gap 11.4 mEq/L (5-15); Aspartate Amino Transferase 13 U/L (15-37); Bilirubin,Total 0.7 mg/dL (0.2-1.0); Blood Urea Nitrogen 9 mg/dL (7-18); C-Reactive Protein 8.3 mg/dL (0.0-0.9); Calcium 8.4 mg/dL (8.5-10.1); Carbon Dioxide 28 mmol/L (21.0-32.0); Chloride 100 mmol/L (98-107); Creatinine,Serum 1.09 mg/dL (0.70-1.30); Estimated Glomerular Filt Rate 76 ml/min (>60); Free T4 (Free Thyroxine) 1.39 ng/dl (0.76-1.46); GFR (African American) 92 ML/MIN (>60); Globulin 4.7 gm/dl (1.3-3.2); Glucose 98 mg/dL (74-106); Potassium 4.4 mmoL/L (3.5-5.1); Sodium 135 mmol/L (136-145); Thyroid Stimulating Hormone 1.58 uIU/ml (0.358-3.740); Total Protein,Serum 7.1 gm/dL (6.4-8.2)
[2019-04-29 13:21] LABS: Folate 9.7 ng/mL (>3.0); Vitamin B12 465 pg/mL (232-1245); Vitamin D 25 Hydroxy 51.2 ng/mL (30.0-100.0)
[2019-05-01 15:13] LABS: HBV IU/mL HBV DNA not detected IU/mL (.)
== END ==
PROVIDERS: Visit Provider Nurse Practitioner Family
DX: R53.83 Other fatigue (principal); Z86.19 Personal history of other infectious and parasitic diseases; R51 Headache; R76.8 Other specified abnormal immunological findings in serum; B18.2 Chronic viral hepatitis C
CPT/HCPCS: 36415; 80053; 82607; 82652; 82746; 84439; 84443; 85025; 85610; 85651; 86140; 87517; 87522

== ENCOUNTER → 2019-05-17 07:57 | Outpatient (CLI) | payer OTHER, SELFPAY ==
--- NOTE | 2019-05-17 07:58 | CT_ITS ---
PROCEDURE: CT HEAD/BRAIN WO CON CLINICAL HISTORY: headache Severe frontal headache COMPARISON: No exams were available for comparison TECHNIQUE: Axial images obtained with sagittal and coronal reformats. All CT scans at the facility use one or more dose reduction, viz: automated exposure control, ma/kV adjustment per patient size (including targeted exams where dose is matched to indication, i.e. head), or iterative reconstruction technique. FINDINGS: No midline shift, mass effect, intracranial hemorrhage, or hydrocephalus. No acute calvarial findings. No mastoid effusion or sinus air-fluid level IMPRESSION: No acute finding Dictated by: Kelvin Yi MD 05/17/2019 18:23 Signed by: <Electronically signed by Kelvin Yi MD in [place]> 05/17/2019 18:23
== END ==
PROVIDERS: PCP Nurse Practitioner Family; Visit Provider Nurse Practitioner Family
DX: R51 Headache (principal)
CPT/HCPCS: 70450